=== PATIENT | male | born 1945 | race Caucasian/White ===

== ENCOUNTER 2017-09-11 23:33 | Emergency (ER) | payer MEDICARE ==
[~2017-09-11] VITALS: Ht 175.3 cm; Wt 71.0 kg
[2017-09-11 23:37] VITALS: Ht 175.3 cm; Wt 71.0 kg
[2017-09-12] MEDS ORDERED: HYDROCODONE/APAP (5/325) TAB PO ONE (01:30)
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
--- NOTE | 2017-09-12 03:27 | RADRPT ---
PROCEDURE: XR Tibia and Fibula. CLINICAL INDICATION: Pain. TECHNIQUE: AP and lateral views of the right tibia and fibula. COMPARISON: None available. FINDINGS: No fracture or dislocation is identified. The joint spaces are unremarkable. There is no significa nt soft tissue swelling. IMPRESSION: 1. No fracture or dislocation of the right tibia and fibula. RPTAT: HTAR .Parminder Pedro MD, MD Date Time Electronically viewed and signed by .Parminder Pedro MD, on 09/12/2017 03:27 .R/
[2017-09-12] MEDS ORDERED: HYDR-906 PO (03:30)
[2017-09-12] MEDS ORDERED: IBUP-1542 PO (03:31)
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
== END 2017-09-12 04:15 | disposition home or self-care (01) ==
LOC: FTE 23:33
DX: M79.604 Pain in right leg (principal); F17.210 Nicotine dependence, cigarettes, uncomplicated
CPT/HCPCS: 73550; 73562; 73590

== ENCOUNTER 2017-10-16 21:34 | Emergency (ER) | END 2017-10-17 04:12 | disposition home or self-care (01) ==